=== PATIENT | male | born 1930 | race Caucasian/White ===

== ENCOUNTER 2017-04-10 06:25 | Day surgery (SDC) | payer MEDICARE, OTHER ==
[~2017-04-10 06:25] MED LIST: Lactated Ringers 1,000 ML IV SCH
[2017-04-10] MEDS ORDERED: fentaNYL 100 MCG/2 ML SDV ONE (08:00)
[2017-04-10] MEDS ORDERED: Propofol 200 MG/20 ML SDV ONE (08:00)
[2017-04-10 09:08] VITALS: BP 127/79
--- NOTE | 2017-04-10 13:58 | OR ---
SURGERY DATE: 04/10/2017. REFERRING PROVIDER: Joaquin Messer MD. PREOPERATIVE DIAGNOSES: 1. Dyspepsia. 2. Anemia. 3. Weight loss. 4. Chronic dysphagia for the past 1 year. All symptoms have improved since on pantoprazole 40 mg daily. POSTOPERATIVE DIAGNOSES: 1. Large duodenal bulb ulceration which appears to be healing. There is some surrounding moderate inflammation. Cold biopsy x2 bites taken. There was also an intact pill capsule present at the area. 2. Minimal diffuse gastritis. Antral biopsy x2 bites taken. 3. Severely retroflexed stomach anatomy which made it difficult to get into the 2nd and 3rd portions of the duodenum. PROCEDURE: EGD with cold biopsy x2 sites. SURGEON: Conrado Henry M.D. ANESTHESIA: Monitored anesthesia care. Surya is an 86-year-old male who was brought to the endoscope suite after discussion of risks and benefits (including but not limited to reaction to medication, bleeding, infection, aspiration, perforation). Informed consent was obtained for monitored anesthesia care and esophagogastroduodenoscopy along with possible biopsy and/or dilatation. Pre-procedure exam including oral cavity was unremarkable. IV, oxygen, and monitors were placed. Patient was placed in the left lateral position and sedation was administered. A bite block was placed gently and scope lightly lubricated and passed through the bite block and over the tongue. Hypopharynx and vocal cords were visualized and unremarkable. Scope was passed through the cricopharynx and into the esophagus. The scope was then passed through the distal esophagus and the GE junction was visualized and photographed. The GE junction was unremarkable. Vocal cords were visualized and unremarkable. The scope was advanced into the stomach and gastric vázquez was suctioned. Pylorus was identified and intubated and then the scope was advanced to the third portion of the duodenum. The second and third portions of the duodenum were difficult to intubated given the severely retroflexed nature of the stomach anatomy. These did appear normal with a brief view of them. The duodenal bulb was visualized and revealed large healing duodenal bulb ulceration with surrounding moderate inflammation and some minimal bleeding. The area was friable. Cold biopsy x2 bites taken. The scope was brought back into the stomach. The pylorus and the antrum were remarkable for some minimal inflammation. Cold biopsy x2 bites was taken from this area to check for H. pylori and sent for path. The scope was retroflexed to visualize the angularis, fundus, body, and cardia. These were remarkable for some minimal inflammation but no masses or ulceration. The stomach was desufflated of air and then the scope was slowly withdrawn, and the esophagus was closely visualized during withdrawal all the way into the posterior pharynx. In the upper esophagus there was an area of heterotopic type mucosa. Cold biopsy x2 bites was taken of this area and sent for path. The patient tolerated the procedure well and went to recovery in stable condition. The patient was monitored until at baseline status. Findings and discharge instructions were reviewed and the patient was discharged in good condition. COMPLICATIONS: None. TOTAL TIME: 12 minutes. ESTIMATED BLOOD LOSS: About 2 mL. RECOMMENDATIONS/FOLLOWUP: We will await results of path reports regarding the need for any further future evaluation. In the meantime, I would like him to continue on pantoprazole 40 mg daily. He should remain off aspirin and also continue to avoid NSAIDs. I would like to kindly thank Dr. Messer for this referral. DMB: 04/10/2017 08:44:31 MODL: 04/10/2017 13:51:03 /[id number] WILMAN
== END 2017-04-10 09:50 | disposition home or self-care (01) ==
LOC: VM.SDS 06:25
PROVIDERS: ATTEND Family Medicine
DX: K29.80 Duodenitis without bleeding (principal); K29.70 Gastritis, unspecified, without bleeding; K31.89 Other diseases of stomach and duodenum; I12.9 Hypertensive chronic kidney disease with stage 1 through stage 4 chronic kidney disease, or unspecified chronic kidney disease; N18.3 Chronic kidney disease, stage 3 (moderate); E11.9 Type 2 diabetes mellitus without complications; E78.00 Pure hypercholesterolemia, unspecified; E55.9 Vitamin D deficiency, unspecified; E78.5 Hyperlipidemia, unspecified; N40.0 Benign prostatic hyperplasia without lower urinary tract symptoms; Z79.4 Long term (current) use of insulin; Z79.899 Other long term (current) drug therapy; Z98.890 Other specified postprocedural states
CPT/HCPCS: 00731; 43239; 82962; J2704; J3010; J7120; 88305